=== PATIENT | male | born 1960 | race Two or more races ===

== ENCOUNTER 2017-11-29 16:26 | Inpatient (IN) | payer MEDICAID ==
[~2017-11-29] VITALS: Ht 177.8 cm; Wt 74.4 kg
[2017-11-29 16:37] VITALS: BP 135/95
--- NOTE | 2017-11-29 16:46 | Emergency Room Report ---
History of Present Illness General Chief Complaint: Dizziness Source: Patient, Family Member, EMS Present Illness HPI 57-year-old male, history of lung cancer, on chemotherapy, current smoker, hypertension, weakness in legs/unsteadiness, has not been able to walk for the last 2 months, presenting with shortness of breath. Patient states for the last 3-4 days he has been feeling very hot and has been short of breath. Not on any oxygen at home. EMS arrived, patient had just finished smoking a cigarette, his oxygen saturation is 94. Patient denies any chest pain nausea vomiting or abdominal pain Allergies: Coded Allergies: CODEINE (Verified Allergy, Unknown, 11/29/17) PENICILLINS (Verified Allergy, Unknown, 11/29/17) Patient History Past Medical History: see triage record Past Surgical History: none Pertinent Family History: none Reviewed Nursing Documentation: PMH: Agreed, PSxH: Agreed Nursing Documentation-PMH Past Medical History: No History, Except For Hx COPD: Yes - lung CA st 4 Review of Systems All Other Systems: negative except mentioned in HPI Physical Exam Vital Signs Date Time Temp Pulse Resp B/P (MAP) Pulse Ox O2 Delivery O2 Flow Rate FiO2 11/29/17 16:27 99.0 112 25 131/80 94 Room Air 99.0 Sp02 EP Interpretation: reviewed, normal General Appearance: alert, GCS 15, moderate distress Head: normocephalic, atraumatic Eyes: bilateral eye normal inspection, bilateral eye PERRL, bilateral eye EOMI ENT: normal ENT inspection, normal pharynx, normal voice, moist mucus membranes Neck: normal inspection, full range of motion, supple Respiratory: no wheezing, respiratory distress, speaking full sentences, other - dec b/s Ll marisel, chest symmetrical Cardiovascular #1: normal inspection, regular rate, rhythm, no edema, normal capillary refill Cardiovascular #2: 2+ radial (R), 2+ radial (L) Gastrointestinal: normal inspection, non tender, soft, non-distended, no guarding Genitourinary: no CVA tenderness Musculoskeletal: normal inspection, back normal, normal range of motion, non- tender Neurologic: normal inspection, alert, oriented x3, responsive, motor strength/ tone normal, sensory intact, speech normal Psychiatric: normal inspection, judgement/insight normal, memory normal Skin: normal inspection, normal color, no rash, warm/dry, well hydrated, normal turgor Procedures Critical Care Time Critical Care Time 40 minutes of CC time 57-year-old male with shortness of breath VS: Tachycardic and tachypneic PLAN: IV access, labs, lactate, troponin, Blood/Urine Cx, Abx, IVF Anticipate admission to Tele vs. [facility] CC time also includes review of labs, review of EMR, discussion with family and paperwork from SNF, d/w hospitalist CC could include dosing of pressors, additional Abx CC time does not include procedures Medical Decision Making Diagnostic Impression: Primary Impression: Respiratory distress Additional Impression: Lung cancer ER Course 57-year-old male presenting with shortness of breath DDX: Progression of lung cancer, sepsis, pneumonia, influenza, ACS, PE Plan: Obtain labs, ua, EKG, CXR ER course: Patient has been in respiratory distress although not hypoxic on room air Patient was stitched tachypnea, full white out left lung,, son states that that is where his lung cancer is I wanted to place patient on BiPAP, however patient is refusing at this time Has a white count of 14, unable to completely rule out pneumonia, given antibiotics Son states that penicillin allergies from when he was little, no history of anaphylaxis, given cefepime agreed to be placed on bipap, upgraded to [facility] Disposition: Patient is to be admitted to [facility] D/W hospitalist Dr Martin Please note that this Emergency Department Report was dictated using [employer] tender technology software, occasionally this can lead to erroneous entry secondary to interpretation by the dictation equipment. EKG Diagnostic Results EP Interpretation: Yes Rate: Tachycardic Rhythm: NSR ST Segments: No acute changes ASA given to patient: No Rhythm Strip EP Interpretation: Yes Rate: 107 Rhythm: NSR, no PVCs, no ectopy Chest X-ray CXR: Ordered: Yes 1 view Indication: Shortness of breath EP interpretation: Yes Interpretation: L lung white out Impression: L lung white out - CA vs. pna vs. effusion Electronically signed by Catie Hernandez MD Laboratory Tests Test 11/29/17 16:54 White Blood Count 14.0 K/UL (4.8-10.8) H Red Blood Count 4.73 M/UL (4.70-6.10) Hemoglobin 14.4 G/DL (14.2-18.0) Hematocrit 43.2 % (42.0-52.0) Mean Corpuscular Volume 91 FL (80-99) Mean Corpuscular Hemoglobin 30.4 PG (27.0-31.0) Mean Corpuscular Hemoglobin Concent 33.3 G/DL (32.0-36.0) Red Cell Distribution Width 15.0 % (11.6-14.8) H Platelet Count 467 K/UL (150-450) H Mean Platelet Volume 5.3 FL (6.5-10.1) L Neutrophils (%) (Auto) 81.4 % (45.0-75.0) H Lymphocytes (%) (Auto) 10.7 % (20.0-45.0) L Monocytes (%) (Auto) 6.8 % (1.0-10.0) Eosinophils (%) (Auto) 0.2 % (0.0-3.0) Basophils (%) (Auto) 0.9 % (0.0-2.0) Sodium Level 128 MMOL/L (136-145) L Potassium Level 4.7 MMOL/L (3.5-5.1) Chloride Level 86 MMOL/L (98-107) L Carbon Dioxide Level 17 MMOL/L (21-32) L Anion Gap 25 mmol/L (5-15) H Blood Urea Nitrogen 26 mg/dL (7-18) H Creatinine 0.9 MG/DL (0.55-1.30) Estimate Glomerular Filtration Rate > 60 mL/min (>60) Glucose Level 118 MG/DL (74-106) H Lactic Acid Level 3.50 mmol/L (0.66-2.22) H Calcium Level 9.9 MG/DL (8.5-10.1) Total Bilirubin 0.6 MG/DL (0.2-1.0) Aspartate Amino Transferase (AST) 264 U/L (15-37) H Alanine Aminotransferase (ALT) 31 U/L (12-78) Alkaline Phosphatase 361 U/L (46-116) H Troponin I 0.000 ng/mL (0.000-0.056) Total Protein 8.0 G/DL (6.4-8.2) Albumin 3.2 G/DL (3.4-5.0) L Globulin 4.8 g/dL Albumin/Globulin Ratio 0.7 (1.0-2.7) L Last Vital Signs Date Time Temp Pulse Resp B/P (MAP) Pulse Ox O2 Delivery O2 Flow Rate FiO2 11/29/17 16:27 99.0 112 25 131/80 94 Room Air 99.0 Disposition: ADMITTED INPATIENT Condition: Catie Prieto M.D. Nov 29, 2017 16:46
[2017-11-29 17:13] LABS: BASOPHILS % (AUTO) 0.9 % (0.0-2.0); EOSINOPHILS % (AUTO) 0.2 % (0.0-3.0); HEMATOCRIT 43.2 % (42.0-52.0); HEMOGLOBIN 14.4 G/DL (14.2-18.0); LYMPHOCYTES % (AUTO) 10.7 % (20.0-45.0); MEAN CORPUSCULAR VOLUME 91 FL (80-99); MONOCYTES % (AUTO) 6.8 % (1.0-10.0); NEUTROPHILS % (AUTO) 81.4 % (45.0-75.0); PLATELET COUNT 467 K/UL (150-450); RED BLOOD COUNT 4.73 M/UL (4.70-6.10)
[2017-11-29 17:24] LABS: ANION GAP 25 mmol/L (5-15); BLOOD UREA NITROGEN 26 mg/dL (7-18); CALCIUM 9.9 MG/DL (8.5-10.1); CARBON DIOXIDE 17 MMOL/L (21-32); CHLORIDE 86 MMOL/L (98-107); CREATININE 0.9 MG/DL (0.55-1.30); POTASSIUM 4.7 MMOL/L (3.5-5.1); SODIUM 128 MMOL/L (136-145)
[2017-11-29 17:28] LABS: ALANINE AMINOTRANSFERASE 31 U/L (12-78); ALBUMIN 3.2 G/DL (3.4-5.0); ALBUMIN/GLOBULIN RATIO 0.7 (1.0-2.7); ALKALINE PHOSPHATASE 361 U/L (46-116); ASPARTATE AMINO TRANSFERASE 264 U/L (15-37); BILIRUBIN,TOTAL 0.6 MG/DL (0.2-1.0)
[2017-11-29] MEDS ORDERED: Cefepime HCl 1 GM in D5W 55 ML IVPB ONE (17:30)
[2017-11-29] MEDS ORDERED: Piperacillin/Tazobactam 3.375 GM in NS 55 ML IV ONE (17:30)
[2017-11-29] MEDS ORDERED: Vancomycin 1.5gm/D5W 250ml 250 ML IVPB ONE (17:30)
[2017-11-29] MEDS ORDERED: Cefepime 1gm vial ONE (17:38)
--- NOTE | 2017-11-29 17:38 | Diagnostic Imaging Report ---
Indication: Reason For Exam: SOB Technique: One view of the chest Comparison: none Findings: There is considerable volume loss of the left lung, with elevation left hemidiaphragm. There is less some aerated lung present. Lateral pleural thickening versus fluid is noted. The right lung and pleural space are clear. There is a right arm PICC. Prominent bowel gas is seen in the upper abdomen Impression: Evidence of left lung volume loss and likely pleural fluid PICC
[2017-11-29] MEDS ORDERED: NORCO 10-325 T1 EACH ORAL (17:39)
[2017-11-29] MEDS ORDERED: ATENOLOL25 MG ORAL ×2 (17:44→22:35)
[2017-11-29] MEDS ORDERED: MORPHINE S10 MG/5 ML ORAL (17:44)
[2017-11-29] MEDS ORDERED: LORazepam Inj 2mg/ml 1ml IV PRN (18:00)
[2017-11-29] MEDS ORDERED: Miralax 17gm pkt ORAL PRN (18:00)
[2017-11-29] MEDS ORDERED: Albuterol/Ipratropium 3ml neb HHN PRN (18:00)
[2017-11-29 18:20] VITALS: BP 107/69
[2017-11-29 19:22] VITALS: BP 130/76
[2017-11-29 19:57] VITALS: BP 130/76
[2017-11-29] MEDS ORDERED: ATENOLOL100 MG ORAL (20:22)
[2017-11-29 21:07] VITALS: BP 137/82
[2017-11-29] MEDS ORDERED: Morphine Sulfate 4mg/ml Inj IVP ONE (21:15)
[2017-11-29] MEDS ORDERED: ZOFRAN ODT8 MG ORAL (22:39)
[2017-11-29] MEDS ORDERED: FENTANYL1 EAC2 TDERMAL (22:39)
[2017-11-29] MEDS ORDERED: Vancomycin 1 GM in D5W 275 ML IV SCH (23:00)
[2017-11-29] MEDS ORDERED: HYDROcodone/Acetamin 10/325 tab ORAL PRN (23:00)
[2017-11-29] MEDS: Morphine Sulfate 10mg/5ml Oral Soln ud ORAL PRN (23:29)
[2017-11-29] MEDS: Ondansetron ODT 8mg tab ORAL PRN (23:31)
[2017-11-29] MEDS: Heparin 5000 units/ml inj SUBQ SCH (23:32)
[2017-11-29 23:50] VITALS: BP 111/69
[2017-11-30] MEDS ORDERED: Cefepime HCl 2 GM in NS 110 ML IV SCH (05:00)
[2017-11-30] MEDS ORDERED: Vancomycin 1250mg/D5W 250ml IVPB SCH (06:00)
[2017-11-30] MEDS: Morphine Sulfate 10mg/5ml Oral Soln ud ORAL PRN (06:32)
[2017-11-30] MEDS: Ondansetron ODT 8mg tab ORAL PRN (06:33)
[2017-11-30 07:00] VITALS: BP 117/81
[2017-11-30] MEDS ORDERED: Morphine Sulfate 10mg/5ml Oral Soln ud ORAL PRN (08:30)
[2017-11-30] MEDS ORDERED: HYDROcodone/Acetamin 10/325 tab ORAL PRN ×4 (08:30→18:30)
[2017-11-30] MEDS: Heparin 5000 units/ml inj SUBQ SCH (09:00)
[2017-11-30] MEDS ORDERED: Atenolol 25mg tab ORAL SCH (09:00)
[2017-11-30] MEDS ORDERED: Naloxone 0.4mg/ml Inj IV PRN ×2 (09:30→14:00)
[2017-11-30] MEDS ORDERED: Morphine Sulfate 10mg/ml Inj IVP PRN ×2 (09:30→15:30)
[2017-11-30] MEDS ORDERED: Fleet's Enema 133ml RECTAL PRN ×2 (09:30→14:30)
--- NOTE | 2017-11-30 09:32 | Diagnostic Imaging Report ---
Indication: Shortness of breath. Abnormal breath sounds Technique: Continuous helical transaxial imaging of the chest was obtained from the thoracic inlet to the upper abdomen after intravenous nonionic contrast administration. Coronal 2-D reformats were also obtained. Automatic Exposure Control was utilized. Total Dose length Product (DLP): 509.[address] Dose Index Volume (CTDIvol): 15.17 mGy Comparison: none Findings: There is a very large enhancing heterogeneous mass (15 x 14 x 15 cm) within the upper portion of the left chest contiguous with the upper mediastinum, left hilum and encasing portions of the aorta, the left subclavian artery, left common carotid artery and the origin of the brachiocephalic artery. There is also encasement of part of the ino, with probable involvement of the esophagus. The mass extends above the thoracic inlet in and around the left medial clavicle head. There is apparent fracture of the medial head of the left clavicle which also appears dislocated from the manubrium. The mass encases the left innominate vein and subclavian vein which are not seen and may be occluded. Do not know what the status of the left jugular vein is. There is encasement of the left mainstem bronchus and branches of the left mainstem bronchus resulting in complete collapse of the left upper lobe and near complete collapse of the left lower lobe, resulting in significant volume loss with elevation of the left hemidiaphragm. There is a pathologic fracture secondary to lucent osseous focus involving the right aspect of the T11 vertebra. There is also expansile lesion involving the posterior part of the right 11th rib with associated soft tissue mass. Emphysema demonstrated within the lungs. There is breathing motion artifact present. There are abnormal hypodensities within both the liver and spleen consistent with metastatic neoplasm. There is a large left adrenal mass measuring 3.5 x 2.2 cm consistent with metastatic neoplasm. IMPRESSION: 15 x 14 x 15 cm heterogeneous mass within the left upper chest consistent malignant neoplasm. Associated extrinsic compression of left mainstem bronchus and branches result in complete atelectasis of the left upper lobe and near complete atelectasis of the left lower lobe. Nonvisualization of the left innominate vein/subclavian vein which may be extrinsically compressed by the mass. Status of the left jugular vein unknown. Evidence of metastatic neoplasm to the bones with a mild pathologic fracture of the T11 vertebra and other osseous deposits. Evidence of metastatic neoplasm to the liver. Left adrenal mass consistent with metastatic focus. Pulmonary emphysema Atherosclerotic disease. The CT scanner at [facility] is accredited by the [employer] and the scans are performed using dose optimization techniques as appropriate to a performed exam including Automatic Exposure control.
[2017-11-30 09:39] LABS: HEMATOCRIT 36.8 % (42.0-52.0); HEMOGLOBIN 12.5 G/DL (14.2-18.0); MEAN CORPUSCULAR VOLUME 90 FL (80-99); PLATELET COUNT 418 K/UL (150-450); RED BLOOD COUNT 4.07 M/UL (4.70-6.10); RED CELL DISTRIBUTION WIDTH 15.2 % (11.6-14.8); WHITE BLOOD COUNT 15.3 K/UL (4.8-10.8)
--- NOTE | 2017-11-30 09:49 | Consultation ---
Consult Note Consult Note [id number] IAIN READ M.D. Nov 30, 2017 09:49
[2017-11-30 09:50] LABS: ALBUMIN 2.5 G/DL (3.4-5.0); ANION GAP 20 mmol/L (5-15); BLOOD UREA NITROGEN 30 mg/dL (7-18); CALCIUM 9.3 MG/DL (8.5-10.1); CARBON DIOXIDE 20 MMOL/L (21-32); CHLORIDE 88 MMOL/L (98-107); CREATININE 1.2 MG/DL (0.55-1.30); PHOSPHORUS 3.6 MG/DL (2.5-4.9); POTASSIUM 4.5 MMOL/L (3.5-5.1); SODIUM 128 MMOL/L (136-145)
--- NOTE | 2017-11-30 11:07 | History and Physical ---
History of Present Illness General Date patient seen: Nov 30, 2017 Reason for Hospitalization: Dizziness Present Illness HPI 57-year-old male, history of stage 4 lung cancer, hypertension, weakness in legs/unsteadiness, has not been able to walk for the last 2 months, presenting with shortness of breath. Patient states for the last 3-4 days he has been feeling very hot and has been short of breath. Not on any oxygen at home. EMS arrived, patient had just finished smoking a cigarette, his oxygen saturation is 94. Pt was diagnosed to have total collapse of his left lung. Allergies: Coded Allergies: CODEINE (Verified Allergy, Unknown, 11/29/17) PENICILLINS (Verified Allergy, Unknown, 11/29/17) LIDOCAINE (Verified Adverse Reaction, Unknown, 11/29/17) Medication History Scheduled Atenolol* (Tenormin*), 25 MG ORAL DAILY, (Reported) Fentanyl 75MCG Patch* (Fentanyl 75MCG Patch*), 1 PATCH TDERMAL EVERY 72 HOURS, ( Reported) Scheduled PRN Hydrocodone Bit/Acetaminophen 10-325* (Havana 10-325*), 1 TAB ORAL Q6HR PRN for For Pain, (Reported) Morphine 10mg/5ml Oral Soln* (Morphine 10mg/5ml Oral Soln*), 60 MG ORAL Q6HR PRN for For Pain, (Reported) Ondansetron Odt* (Zofran Odt*), 8 MG ORAL Q6H PRN for Nausea & Vomiting, ( Reported) Discontinued Medications Atenolol* (Tenormin*), 100 MG ORAL DAILY, (Reported) Discontinued Reason: Prescription changed Patient History Healthcare decision maker Resuscitation status Full Code Advanced Directive on File Past Medical/Surgical History Past Medical/Surgical History: (1) Lung cancer Review of Systems Respiratory: Reports: cough, orthopnea All Other Systems: negative except mentioned in HPI Physical Exam General Appearance: cachetic Lines, tubes and drains: peripheral HEENT: normocephalic, atraumatic Neck: non-tender, normal alignment Respiratory/Chest: chest wall non-tender, lungs clear Cardiovascular/Chest: normal peripheral pulses, normal rate Abdomen: normal bowel sounds, non tender Last 24 Hour Vital Signs Date Time Temp Pulse Resp B/P (MAP) Pulse Ox O2 Delivery O2 Flow Rate FiO2 11/30/17 09:50 117 144/85 11/30/17 07:00 97.3 117 22 117/81 97 Room Air 21 97.3 11/30/17 04:00 103 11/30/17 00:00 103 11/29/17 23:50 98.1 91 22 111/69 90 Room Air 21 98.1 11/29/17 22:25 109 11/29/17 22:00 99.0 107 23 137/82 94 Room Air 2.0 210.2 11/29/17 21:21 99.0 11/29/17 21:07 99.0 107 23 137/82 94 Room Air 99.0 11/29/17 19:57 99.0 114 17 130/76 96 Nasal Cannula 2.0 99.0 11/29/17 19:22 99.0 109 26 130/76 97 Room Air 99.0 11/29/17 18:20 99.0 100 22 107/69 99 Room Air 99.0 11/29/17 16:37 99.0 101 22 135/95 90 Room Air 99.0 11/29/17 16:27 99.0 112 25 131/80 94 Room Air 99.0 Intake and Output 11/29/17 11/30/17 19:00 07:00 Intake Total 0 ml 100 ml Balance 0 ml 100 ml Intake Oral 0 ml 100 ml Laboratory Tests Test 11/29/17 16:54 11/29/17 20:40 11/30/17 09:00 White Blood Count 14.0 K/UL (4.8-10.8) H 15.3 K/UL (4.8-10.8) H Red Blood Count 4.73 M/UL (4.70-6.10) 4.07 M/UL (4.70-6.10) L Hemoglobin 14.4 G/DL (14.2-18.0) 12.5 G/DL (14.2-18.0) L Hematocrit 43.2 % (42.0-52.0) 36.8 % (42.0-52.0) L Mean Corpuscular Volume 91 FL (80-99) 90 FL (80-99) Mean Corpuscular Hemoglobin 30.4 PG (27.0-31.0) 30.7 PG (27.0-31.0) Mean Corpuscular Hemoglobin Concent 33.3 G/DL (32.0-36.0) 34.0 G/DL (32.0-36.0) Red Cell Distribution Width 15.0 % (11.6-14.8) H 15.2 % (11.6-14.8) H Platelet Count 467 K/UL (150-450) H 418 K/UL (150-450) Mean Platelet Volume 5.3 FL (6.5-10.1) L 5.2 FL (6.5-10.1) L Neutrophils (%) (Auto) 81.4 % (45.0-75.0) H % (45.0-75.0) Lymphocytes (%) (Auto) 10.7 % (20.0-45.0) L % (20.0-45.0) Monocytes (%) (Auto) 6.8 % (1.0-10.0) % (1.0-10.0) Eosinophils (%) (Auto) 0.2 % (0.0-3.0) % (0.0-3.0) Basophils (%) (Auto) 0.9 % (0.0-2.0) % (0.0-2.0) Sodium Level 128 MMOL/L (136-145) L 128 MMOL/L (136-145) L Potassium Level 4.7 MMOL/L (3.5-5.1) 4.5 MMOL/L (3.5-5.1) Chloride Level 86 MMOL/L (98-107) L 88 MMOL/L (98-107) L Carbon Dioxide Level 17 MMOL/L (21-32) L 20 MMOL/L (21-32) L Anion Gap 25 mmol/L (5-15) H 20 mmol/L (5-15) H Blood Urea Nitrogen 26 mg/dL (7-18) H 30 mg/dL (7-18) H Creatinine 0.9 MG/DL (0.55-1.30) 1.2 MG/DL (0.55-1.30) Estimat Glomerular Filtration Rate > 60 mL/min (>60) > 60 mL/min (>60) Glucose Level 118 MG/DL (74-106) H 190 MG/DL (74-106) H Lactic Acid Level 3.50 mmol/L (0.66-2.22) H 3.30 mmol/L (0.66-2.22) H Calcium Level 9.9 MG/DL (8.5-10.1) 9.3 MG/DL (8.5-10.1) Total Bilirubin 0.6 MG/DL (0.2-1.0) Aspartate Amino Transf (AST/SGOT) 264 U/L (15-37) H Alanine Aminotransferase (ALT/SGPT) 31 U/L (12-78) Alkaline Phosphatase 361 U/L (46-116) H Troponin I 0.000 ng/mL (0.000-0.056) Total Protein 8.0 G/DL (6.4-8.2) Albumin 3.2 G/DL (3.4-5.0) L 2.5 G/DL (3.4-5.0) L Globulin 4.8 g/dL Albumin/Globulin Ratio 0.7 (1.0-2.7) L Differential Total Cells Counted 100 Neutrophils % (Manual) 88 % (45-75) H Lymphocytes % (Manual) 7 % (20-45) L Monocytes % (Manual) 3 % (1-10) Eosinophils % (Manual) 1 % (0-3) Basophils % (Manual) 0 % (0-2) Band Neutrophils 1 % (0-8) Nucleated Red Blood Cells 1 /100 WBC Platelet Estimate Adequate Platelet Morphology Normal Red Blood Cell Morphology Normal Phosphorus Level 3.6 MG/DL (2.5-4.9) Microbiology Date/Time Source Procedure Growth Status 11/29/17 20:09 Nasal Nares Influenza Types A,B Antigen (RENETTA) - Final Complete Height (Feet): 5 Height (Inches): 10.00 Weight (Pounds): 164 Medications Current Medications Medications (Trade) Dose Ordered Sig/Maggie Route PRN Reason Start Time Stop Time Status Last Admin Dose Admin Acetaminophen (Tylenol) 650 mg Q4H PRN ORAL T>100.5 11/29/17 18:00 12/29/17 17:59 Acetaminophen/ Hydrocodone Bitart (Havana 10325) 1 tab Q6H PRN ORAL MODERATE BREAKTHROUGH PAIN 11/30/17 09:30 12/06/17 22:59 Albuterol/ Ipratropium (Albuterol/ Ipratropium) 3 ml Q4H PRN HHN Shortness of Breath 11/29/17 18:00 12/04/17 17:59 Atenolol (Tenormin) 25 mg DAILY ORAL 11/30/17 09:00 12/30/17 08:59 11/30/17 09:50 Cefepime HCl 2 gm/ Sodium Chloride 110 ml @ 220 mls/hr Q12H IV 11/30/17 05:00 12/07/17 04:59 11/30/17 06:33 Dextrose (Dextrose 50%) STAT PRN IV Hypoglycemia 11/29/17 18:00 12/29/17 17:59 Fentanyl (Duragesic) 1 patch Q72H TDERMAL 11/30/17 10:00 12/07/17 09:59 Heparin Sodium (Porcine) (Heparin 5000 units/ml) 5,000 units EVERY 12 HOURS SUBQ 11/29/17 21:00 12/29/17 20:59 11/29/17 23:32 Lorazepam (Ativan 2mg/ml 1ml) 2 mg Q2H PRN IV For Anxiety 11/29/17 18:00 12/06/17 17:59 Miscellaneous Medication (fentaNYL Destruction) 1 ea Q72H MISC 12/03/17 10:00 01/02/18 09:59 Morphine Sulfate (Morphine Sulfate) 10 mg Q6H PRN IVP SEVERE BREAKTHROUGH PAIN 11/30/17 09:30 12/07/17 09:29 Naloxone HCl (Narcan) 0.1 mg PRN IV Sedation scale 3 or 4 11/30/17 09:30 Ondansetron HCl (Zofran ODT) 8 mg Q6H PRN ORAL Nausea & Vomiting 11/29/17 23:00 12/29/17 22:59 11/30/17 06:33 Polyethylene Glycol (Miralax) 17 gm DAILYPRN PRN ORAL Constipation 11/29/17 18:00 12/29/17 17:59 Promethazine HCl (Phenergan) 25 mg EVERY 6 HOURS PRN IV Nausea & Vomiting 11/30/17 10:00 12/30/17 09:59 Sodium Chloride 1,000 ml @ 50 mls/hr Q20H IV 11/29/17 21:30 12/29/17 21:29 11/29/17 23:33 Sodium Phosphate (Fleet's Sodium Phosl Enema) 133 ml DAILYPRN PRN RECTAL Constipation 11/30/17 09:30 12/30/17 09:29 11/30/17 09:50 Vancomycin HCl/ Dextrose 250 ml @ 166.667 mls/hr Q12H IVPB 11/30/17 06:00 12/05/17 05:59 11/30/17 07:04 Assessment/Plan Problem List: (1) Intractable back pain ICD Codes: M54.9 - Dorsalgia, unspecified SNOMED: 413348771 (2) Pathological fracture ICD Codes: M84.40XA - Pathological fracture, unspecified site, initial encounter for fracture SNOMED: 401661054 (3) Respiratory distress ICD Codes: R06.03 - Acute respiratory distress SNOMED: 245137382 (4) Lung cancer ICD Codes: C34.90 - Malignant neoplasm of unspecified part of unspecified bronchus or lung SNOMED: 370279994 Assessment/Plan pain management pain consult oncology consult d/w son about plan of care , he wants DNR and hospice care upon discharge. Talked to dr Mckeon, he will arrange the hospice. SUNSHINE STEWARD Nov 30, 2017 11:07
[2017-11-30 12:00] VITALS: BP 144/85
[2017-11-30 13:30] VITALS: BP 105/65
[2017-11-30] MEDS ORDERED: Albuterol/Ipratropium 3ml neb HHN PRN (14:00)
[2017-11-30] MEDS ORDERED: LORazepam Inj 2mg/ml 1ml IV PRN (14:00)
[2017-11-30] MEDS ORDERED: Miralax 17gm pkt ORAL PRN (14:30)
[2017-11-30] MEDS ORDERED: Ondansetron ODT 8mg tab ORAL PRN (14:30)
[2017-11-30 16:00] VITALS: BP_SYST 109; BP_SYST 92; BP_DIAS 63; BP_DIAS 73
--- NOTE | 2017-11-30 16:27 | Cardiology Report ---
APPROVED REPORT EKG Measurement Heart [id number] Sinus tachycardia Possible Inferior infarct, age undetermined Abnormal ECG
[2017-11-30] MEDS: Cefepime HCl 2 GM in NS 110 ML IV SCH (16:49)
--- NOTE | 2017-11-30 16:53 | GI Initial Consult Note ---
History of Present Illness General Date patient seen: Nov 30, 2017 Time patient seen: 16:50 Reason for Hospitalization: Dizziness Referring physician: JUVENAL Reason for Consultation: R/O GI BLEED Present Illness HPI 57-year-old male, history of lung cancer, on chemotherapy, current smoker, hypertension, weakness in legs/unsteadiness, has not been able to walk for the last 2 months, presenting with shortness of breath. Patient states for the last 3-4 days he has been feeling very hot and has been short of breath. Not on any oxygen at home. EMS arrived, patient had just finished smoking a cigarette, his oxygen saturation is 94. Patient denies any chest pain nausea vomiting or abdominal pain GI consulted for r/o GI bleed. Pt seen, awake A&O NAD with no active s/sx of N/ V/D. Reports of possible hematemesis vs coffee grounds. Hx of stage 4 lung CA. Patient presents today with leukocytosis and anemia. Unnknown history of endoscopy / colonoscopy. Home Meds Reported Medications Fentanyl 75MCG Patch* (FENTANYL 75MCG PATCH*) 1 Each Patch.td72, 1 PATCH TDERMAL EVERY 72 HOURS, PATCH 11/29/17 Ondansetron Odt* (ZOFRAN ODT*) 8 Mg Tab.rapdis, 8 MG ORAL Q6H Y for Nausea & Vomiting, #30 TAB 11/29/17 Atenolol* (TENORMIN*) 25 Mg Tablet, 25 MG ORAL DAILY, TAB 11/29/17 Morphine 10mg/5ml Oral Soln* (Morphine 10mg/5ml Oral Soln*) 10 Mg/5 Ml Solution , 60 MG ORAL Q6HR Y for For Pain 11/29/17 Hydrocodone Bit/Acetaminophen 10-325* (NORCO 10-325*) 1 Each Tablet, 1 TAB ORAL Q6HR Y for For Pain PRN PAIN 11/29/17 Discontinued Reported Medications Atenolol* (TENORMIN*) 100 Mg Tablet, 100 MG ORAL DAILY 11/29/17 Med list reviewed/reconciled: Yes Allergies: Coded Allergies: CODEINE (Verified Allergy, Unknown, 11/29/17) PENICILLINS (Verified Allergy, Unknown, 11/29/17) LIDOCAINE (Verified Adverse Reaction, Unknown, 11/29/17) Patient History History Provided By: Patient, Medical Record PMH Narrative Past Medical History: see triage record Past Surgical History: none Pertinent Family History: none Reviewed Nursing Documentation: PMH: Agreed, PSxH: Agreed Nursing Documentation-PMH Past Medical History: No History, Except For Hx COPD: Yes - lung CA st 4 Social History: Reports: smoking Review of Systems All Other Systems: negative except mentioned in HPI Physical Exam Vital Signs Date Time Temp Pulse Resp B/P (MAP) Pulse Ox O2 Delivery O2 Flow Rate FiO2 11/29/17 16:27 99.0 112 25 131/80 94 Room Air 99.0 11/29/17 19:57 2.0 11/29/17 23:50 21 Sp02 EP Interpretation: reviewed, normal Labs Laboratory Tests Test 11/29/17 16:54 11/29/17 20:40 11/30/17 09:00 White Blood Count 14.0 K/UL (4.8-10.8) H 15.3 K/UL (4.8-10.8) H Red Blood Count 4.73 M/UL (4.70-6.10) 4.07 M/UL (4.70-6.10) L Hemoglobin 14.4 G/DL (14.2-18.0) 12.5 G/DL (14.2-18.0) L Hematocrit 43.2 % (42.0-52.0) 36.8 % (42.0-52.0) L Mean Corpuscular Volume 91 FL (80-99) 90 FL (80-99) Mean Corpuscular Hemoglobin 30.4 PG (27.0-31.0) 30.7 PG (27.0-31.0) Mean Corpuscular Hemoglobin Concent 33.3 G/DL (32.0-36.0) 34.0 G/DL (32.0-36.0) Red Cell Distribution Width 15.0 % (11.6-14.8) H 15.2 % (11.6-14.8) H Platelet Count 467 K/UL (150-450) H 418 K/UL (150-450) Mean Platelet Volume 5.3 FL (6.5-10.1) L 5.2 FL (6.5-10.1) L Neutrophils (%) (Auto) 81.4 % (45.0-75.0) H % (45.0-75.0) Lymphocytes (%) (Auto) 10.7 % (20.0-45.0) L % (20.0-45.0) Monocytes (%) (Auto) 6.8 % (1.0-10.0) % (1.0-10.0) Eosinophils (%) (Auto) 0.2 % (0.0-3.0) % (0.0-3.0) Basophils (%) (Auto) 0.9 % (0.0-2.0) % (0.0-2.0) Sodium Level 128 MMOL/L (136-145) L 128 MMOL/L (136-145) L Potassium Level 4.7 MMOL/L (3.5-5.1) 4.5 MMOL/L (3.5-5.1) Chloride Level 86 MMOL/L (98-107) L 88 MMOL/L (98-107) L Carbon Dioxide Level 17 MMOL/L (21-32) L 20 MMOL/L (21-32) L Anion Gap 25 mmol/L (5-15) H 20 mmol/L (5-15) H Blood Urea Nitrogen 26 mg/dL (7-18) H 30 mg/dL (7-18) H Creatinine 0.9 MG/DL (0.55-1.30) 1.2 MG/DL (0.55-1.30) Estimat Glomerular Filtration Rate > 60 mL/min (>60) > 60 mL/min (>60) Glucose Level 118 MG/DL (74-106) H 190 MG/DL (74-106) H Lactic Acid Level 3.50 mmol/L (0.66-2.22) H 3.30 mmol/L (0.66-2.22) H Calcium Level 9.9 MG/DL (8.5-10.1) 9.3 MG/DL (8.5-10.1) Total Bilirubin 0.6 MG/DL (0.2-1.0) Aspartate Amino Transf (AST/SGOT) 264 U/L (15-37) H Alanine Aminotransferase (ALT/SGPT) 31 U/L (12-78) Alkaline Phosphatase 361 U/L (46-116) H Troponin I 0.000 ng/mL (0.000-0.056) Total Protein 8.0 G/DL (6.4-8.2) Albumin 3.2 G/DL (3.4-5.0) L 2.5 G/DL (3.4-5.0) L Globulin 4.8 g/dL Albumin/Globulin Ratio 0.7 (1.0-2.7) L Differential Total Cells Counted 100 Neutrophils % (Manual) 88 % (45-75) H Lymphocytes % (Manual) 7 % (20-45) L Monocytes % (Manual) 3 % (1-10) Eosinophils % (Manual) 1 % (0-3) Basophils % (Manual) 0 % (0-2) Band Neutrophils 1 % (0-8) Nucleated Red Blood Cells 1 /100 WBC Platelet Estimate Adequate Platelet Morphology Normal Red Blood Cell Morphology Normal Phosphorus Level 3.6 MG/DL (2.5-4.9) General Appearance: well appearing, no apparent distress, alert Head: normocephalic EENT: PERRL/EOMI, normal ENT inspection Neck: supple Respiratory: normal breath sounds, no respiratory distress Cardiovascular: normal rate Gastrointestinal: normal inspection, non tender, soft, normal bowel sounds, non -distended Rectal: deferred Genitourinary: deferred Musculoskeletal: normal inspection, back normal Neurologic: normal inspection, alert, oriented x3, responsive Psychiatric: normal inspection, judgement/insight normal, memory normal Skin: normal inspection, normal color, no rash, warm/dry, palpation normal, well hydrated Lymphatic: normal inspection, no adenopathy Current Medications Current Medications Medications (Trade) Dose Ordered Sig/Maggie Route PRN Reason Start Time Stop Time Status Last Admin Dose Admin Acetaminophen (Tylenol) 650 mg Q4H PRN ORAL T>100.5 11/30/17 14:00 12/29/17 17:59 Acetaminophen/ Hydrocodone Bitart ([place] 10/325) 1 tab Q6H PRN ORAL MODERATE BREAKTHROUGH PAIN 11/30/17 15:30 12/06/17 22:59 Albuterol/ Ipratropium (Albuterol/ Ipratropium) 3 ml Q4H PRN HHN Shortness of Breath 11/30/17 14:00 12/04/17 17:59 Atenolol (Tenormin) 25 mg DAILY ORAL 12/01/17 09:00 12/30/17 08:59 Cefepime HCl 2 gm/ Sodium Chloride 110 ml @ 220 mls/hr Q12H IV 11/30/17 17:00 12/07/17 04:59 11/30/17 16:49 Dextrose (Dextrose 50%) STAT PRN IV Hypoglycemia 11/30/17 14:30 12/29/17 14:29 Fentanyl (Duragesic) 1 patch Q72H TDERMAL 11/30/17 10:00 12/07/17 09:59 11/30/17 11:04 Heparin Sodium (Porcine) (Heparin 5000 units/ml) 5,000 units EVERY 12 HOURS SUBQ 11/30/17 21:00 12/29/17 20:59 Lorazepam (Ativan 2mg/ml 1ml) 2 mg Q2H PRN IV For Anxiety 11/30/17 14:00 12/06/17 17:59 Methadone HCl (Methadone HCl) 2.5 mg EVERY 6 HOURS ORAL 11/30/17 18:00 12/07/17 12:29 Miscellaneous Medication (fentaNYL Destruction) 1 ea Q72H MISC 12/03/17 10:00 01/02/18 09:59 Morphine Sulfate (Morphine Sulfate) 10 mg Q6H PRN IVP SEVERE BREAKTHROUGH PAIN 11/30/17 15:30 12/07/17 09:29 Naloxone HCl (Narcan) 0.1 mg PRN IV Sedation scale 3 or 4 11/30/17 14:00 12/30/17 13:59 Ondansetron HCl (Zofran ODT) 8 mg Q6H PRN ORAL Nausea & Vomiting 11/30/17 14:30 12/29/17 14:29 Polyethylene Glycol (Miralax) 17 gm DAILYPRN PRN ORAL Constipation 11/30/17 14:30 12/29/17 14:29 Promethazine HCl (Phenergan) 25 mg Q6H PRN IV Nausea & Vomiting 11/30/17 14:30 12/30/17 14:29 Sodium Chloride 1,000 ml @ 50 mls/hr Q20H IV 11/30/17 14:00 12/29/17 21:29 11/30/17 15:27 Sodium Phosphate (Fleet's Sodium Phosl Enema) 133 ml DAILYPRN PRN RECTAL Constipation 11/30/17 14:30 12/30/17 14:29 Vancomycin HCl/ Dextrose 250 ml @ 166.667 mls/hr Q12H IVPB 11/30/17 18:00 12/05/17 05:59 GI: Plan Problems: (1) GI bleed (2) Respiratory distress (3) Lung cancer Plan elevated AST >> ?ETOH fu onc recs anemia work up OB stool r/o GI bleed monitor H&H, prn transfusions bowel regime CLD, adv as tolerated ppi fu labs Discussed with Dr. Benitez. Thank you for this patient referral, we will follow. Shanita Hutchison N.P. Nov 30, 2017 16:53
--- NOTE | 2017-11-30 17:15 | Consultation ---
DATE OF CONSULTATION: 11/30/2017 INFECTIOUS DISEASES CONSULTATION CONSULTING PHYSICIAN: Rony Oliver M.D. REQUESTING PHYSICIAN: Arsen Martin M.D. REASON FOR CONSULTATION: Evaluation of the patient for postobstructive pneumonia. HISTORY OF PRESENT ILLNESS: The patient is a 57-year-old male with multiple medical problems as listed below who has developed shortness of breath, cough that has worsened. Infectious Disease consultation has been requested for further evaluation of the patient and antibiotic management. The patient has history of stage IV lung CA, not responding to chemo. PAST MEDICAL HISTORY: 1. Stage IV small cell carcinoma. 2. COPD. 3. Hypertension. MEDICATIONS: Vancomycin and cefepime. ALLERGIES: Penicillin, lidocaine, and codeine. SOCIAL HISTORY: The patient lives at home. FAMILY HISTORY: Noncontributing. PHYSICAL EXAMINATION: VITAL SIGNS: Temperature 97.3 degrees, blood pressure 117/81, pulse 86, and respiratory rate 18. HEENT: No pale conjunctivae. No icterus. NECK: No lymphadenopathy. CHEST: Mild coarse breathing sounds at the base of the lungs. HEART: S1 and S2. ABDOMEN: Soft and nontender. EXTREMITIES: No cyanosis at this time. NEUROLOGIC: Awake. LABORATORY AND DIAGNOSTIC DATA: White blood cells 14, hemoglobin 14, and platelets 467. BUN 26 and creatinine 0.9. ALT 31, AST 264, and alkaline phosphatase 361. Influenza screening negative for A/B influenza. CT of the chest shows 15 x 14 x malignant neoplasm, evidence of metastatic neoplasm to the bone, liver, and left adrenal. ASSESSMENT: This is a 57-year-old male with, 1. Leukocytosis. 2. Probable postobstructive pneumonia. 3. Stage IV cancer with metastasis to the bone, liver, and adrenal. 4. Leukocytosis due to cancer and probable infectious process and pneumonia. PLAN: 1. We will continue the patient on vancomycin and cefepime. 2. Monitor cultures (blood, sputum). 3. Monitor chest x-ray. 4. Monitor CBC and BMP. 5. Rapid influenza test negative. 6. Based on the patient's clinical course and labs, we will do further recommendations. Thank you, Dr. Martin, for allowing me to participate in the care of this patient. I will follow the patient with you during this hospitalization. Rony Oliver M.D. DR: EKATERINA JOB#: [id number] CC:
[2017-11-30] MEDS ORDERED: Vancomycin 1250mg/D5W 250ml 250 ML IVPB SCH (18:00)
--- NOTE | 2017-11-30 19:47 | Consultation ---
History of Present Illness General Date patient seen: Nov 30, 2017 Present Illness Allergies: Coded Allergies: CODEINE (Verified Allergy, Unknown, 11/29/17) PENICILLINS (Verified Allergy, Unknown, 11/29/17) LIDOCAINE (Verified Adverse Reaction, Unknown, 11/29/17) Medication History Scheduled Atenolol* (Tenormin*), 25 MG ORAL DAILY, (Reported) Fentanyl 75MCG Patch* (Fentanyl 75MCG Patch*), 1 PATCH TDERMAL EVERY 72 HOURS, ( Reported) Scheduled PRN Hydrocodone Bit/Acetaminophen 10-325* ([place] 10-325*), 1 TAB ORAL Q6HR PRN for For Pain, (Reported) Morphine 10mg/5ml Oral Soln* (Morphine 10mg/5ml Oral Soln*), 60 MG ORAL Q6HR PRN for For Pain, (Reported) Ondansetron Odt* (Zofran Odt*), 8 MG ORAL Q6H PRN for Nausea & Vomiting, ( Reported) Discontinued Medications Atenolol* (Tenormin*), 100 MG ORAL DAILY, (Reported) Discontinued Reason: Prescription changed Patient History Healthcare decision maker Resuscitation status Full Code Advanced Directive on File Physical Exam Last 24 Hour Vital Signs Date Time Temp Pulse Resp B/P (MAP) Pulse Ox O2 Delivery O2 Flow Rate FiO2 11/30/17 16:00 98.2 82 20 92/63 98 Room Air 98.2 11/30/17 13:30 97.5 112 22 105/65 90 Room Air 97.5 11/30/17 12:00 98.2 117 20 144/85 92 Room Air 98.2 11/30/17 09:50 117 144/85 11/30/17 07:00 97.3 117 22 117/81 97 Room Air 21 97.3 11/30/17 04:00 103 11/30/17 00:00 103 11/29/17 23:50 98.1 91 22 111/69 90 Room Air 21 98.1 11/29/17 22:25 109 11/29/17 22:00 99.0 107 23 137/82 94 Room Air 2.0 210.2 11/29/17 21:21 99.0 11/29/17 21:07 99.0 107 23 137/82 94 Room Air 99.0 11/29/17 19:57 99.0 114 17 130/76 96 Nasal Cannula 2.0 99.0 Intake and Output 11/29/17 11/30/17 19:00 07:00 Intake Total 0 ml 100 ml Balance 0 ml 100 ml Intake Oral 0 ml 100 ml Laboratory Tests Test 11/29/17 20:40 11/30/17 09:00 Lactic Acid Level 3.30 mmol/L (0.66-2.22) H White Blood Count 15.3 K/UL (4.8-10.8) H Red Blood Count 4.07 M/UL (4.70-6.10) L Hemoglobin 12.5 G/DL (14.2-18.0) L Hematocrit 36.8 % (42.0-52.0) L Mean Corpuscular Volume 90 FL (80-99) Mean Corpuscular Hemoglobin 30.7 PG (27.0-31.0) Mean Corpuscular Hemoglobin Concent 34.0 G/DL (32.0-36.0) Red Cell Distribution Width 15.2 % (11.6-14.8) H Platelet Count 418 K/UL (150-450) Mean Platelet Volume 5.2 FL (6.5-10.1) L Neutrophils (%) (Auto) % (45.0-75.0) Lymphocytes (%) (Auto) % (20.0-45.0) Monocytes (%) (Auto) % (1.0-10.0) Eosinophils (%) (Auto) % (0.0-3.0) Basophils (%) (Auto) % (0.0-2.0) Differential Total Cells Counted 100 Neutrophils % (Manual) 88 % (45-75) H Lymphocytes % (Manual) 7 % (20-45) L Monocytes % (Manual) 3 % (1-10) Eosinophils % (Manual) 1 % (0-3) Basophils % (Manual) 0 % (0-2) Band Neutrophils 1 % (0-8) Nucleated Red Blood Cells 1 /100 WBC Platelet Estimate Adequate Platelet Morphology Normal Red Blood Cell Morphology Normal Sodium Level 128 MMOL/L (136-145) L Potassium Level 4.5 MMOL/L (3.5-5.1) Chloride Level 88 MMOL/L (98-107) L Carbon Dioxide Level 20 MMOL/L (21-32) L Anion Gap 20 mmol/L (5-15) H Blood Urea Nitrogen 30 mg/dL (7-18) H Creatinine 1.2 MG/DL (0.55-1.30) Estimat Glomerular Filtration Rate > 60 mL/min (>60) Glucose Level 190 MG/DL (74-106) H Calcium Level 9.3 MG/DL (8.5-10.1) Phosphorus Level 3.6 MG/DL (2.5-4.9) Albumin 2.5 G/DL (3.4-5.0) L Microbiology Date/Time Source Procedure Growth Status 11/29/17 20:09 Nasal Nares Influenza Types A,B Antigen (RENETTA) - Final Complete Height (Feet): 5 Height (Inches): 10.00 Weight (Pounds): 164 Medications Current Medications Medications (Trade) Dose Ordered Sig/Maggie Route PRN Reason Start Time Stop Time Status Last Admin Dose Admin Acetaminophen (Tylenol) 650 mg Q4H PRN ORAL T>100.5 11/30/17 14:00 12/29/17 17:59 Acetaminophen/ Hydrocodone Bitart ([place] 10/325) 1 tab Q4H PRN ORAL Moderate Pain (Pain Scale 4-6) 11/30/17 18:30 12/07/17 18:29 Albuterol/ Ipratropium (Albuterol/ Ipratropium) 3 ml Q4H PRN HHN Shortness of Breath 11/30/17 14:00 12/04/17 17:59 Atenolol (Tenormin) 25 mg DAILY ORAL 12/01/17 09:00 12/30/17 08:59 Cefepime HCl 2 gm/ Sodium Chloride 110 ml @ 220 mls/hr Q12H IV 11/30/17 17:00 12/07/17 04:59 11/30/17 16:49 Chlorhexidine Gluconate (Yue-Hex 2%) 1 applic DAILY@2000 TOPIC 11/30/17 20:00 12/30/17 19:59 Dextrose (Dextrose 50%) STAT PRN IV Hypoglycemia 11/30/17 14:30 12/29/17 14:29 Fentanyl (Duragesic) 1 patch Q72H TDERMAL 11/30/17 10:00 12/07/17 09:59 11/30/17 11:04 Heparin Sodium (Porcine) (Heparin 5000 units/ml) 5,000 units EVERY 12 HOURS SUBQ 11/30/17 21:00 12/29/17 20:59 Lorazepam (Ativan 2mg/ml 1ml) 2 mg Q2H PRN IV For Anxiety 11/30/17 14:00 12/06/17 17:59 Miscellaneous Medication (fentaNYL Destruction) 1 ea Q72H MISC 12/03/17 10:00 01/02/18 09:59 Morphine Sulfate (Morphine Sulfate) 4 mg Q3H PRN IVP Severe Pain (Pain Scale 7-10) 11/30/17 18:30 12/07/17 18:29 Naloxone HCl (Narcan) 0.1 mg PRN IV Sedation scale 3 or 4 11/30/17 14:00 12/30/17 13:59 Ondansetron HCl (Zofran ODT) 8 mg Q6H PRN ORAL Nausea & Vomiting 11/30/17 14:30 12/29/17 14:29 Polyethylene Glycol (Miralax) 17 gm DAILYPRN PRN ORAL Constipation 11/30/17 14:30 12/29/17 14:29 Promethazine HCl (Phenergan) 25 mg Q6H PRN IV Nausea & Vomiting 11/30/17 14:30 12/30/17 14:29 Sodium Chloride 1,000 ml @ 50 mls/hr Q20H IV 11/30/17 14:00 12/29/17 21:29 11/30/17 15:27 Sodium Phosphate (Fleet's Sodium Phosl Enema) 133 ml DAILYPRN PRN RECTAL Constipation 11/30/17 14:30 12/30/17 14:29 Vancomycin HCl/ Dextrose 250 ml @ 166.667 mls/hr Q12H IVPB 11/30/17 18:00 12/05/17 05:59 11/30/17 17:48 Assessment/Plan Assessment/Plan (1) Intractable pain (2) Metastatic Lung cancer (3) Paraparesis seen dictated RIMMA VYAS Nov 30, 2017 19:47
[2017-11-30] MEDS: Morphine Sulfate 4mg/ml Inj IVP PRN (19:59)
[2017-11-30 20:00] VITALS: BP 110/75
[2017-11-30] MEDS ORDERED: Dyna-Hex 2% Top Sol 2oz TOPIC SCH (20:00)
[2017-11-30] MEDS ORDERED: Heparin 5000 units/ml inj SUBQ SCH (21:00)
--- NOTE | 2017-11-30 23:45 | Consultation ---
DATE OF CONSULTATION: 11/30/2017 PAIN MANAGEMENT CONSULTATION REFERRING PHYSICIAN: Arsen Martin M.D. CONSULTING PHYSICIAN: Rosie London M.D. PHYSICIAN SEARCH MARKETING ANALYST: Mary Anne Yip CHIEF COMPLAINT: Generalized body pain. HISTORY OF PRESENT ILLNESS: This is a 57-year-old male who is being seen on the medical/surgical floor of [facility] for initial comprehensive pain management consultation. The patient is complaining of generalized body pain, which is severe, rating 10/10, and described the pain as a sharp and stabbing pain increased with movement and nothing has been helping to relieve the pain. The patient explained that he is having lung cancer with metastasis, unable to walk for the past two months and has been having some shortness of breath. He is on fentanyl patches 75 mcg every 72 hours and morphine solution as per his oncologist. Upon admission, a CT scan of the chest was done showing a large malignant neoplasm in the lung as well as evidence of metastatic neoplasm to the bones with mild pathological fracture of the T11 vertebral body. At this time, the patient has been started on fentanyl patch 75 mcg every 72 hours, methadone 2.5 mg every six hours, [place] 10/325 one tablet every six hours as well as morphine 10 mg IV every four hours. I discussed with the patient about his condition and the need to have medication on board. However, he refused to take the methadone. We will continue the fentanyl patch with parameters to be set as well as reduce the morphine to 4 mg IV every three hours as needed for severe pain. Continue the [place] 10/325 mg every four hours as needed for moderate pain. The patient understands and agrees with the plan. PAST MEDICAL HISTORY: Lung cancer, hypertension, and weakness in the lower extremities. MEDICATIONS: Crum [place], morphine, Zofran, fentanyl patch, and atenolol. ALLERGIES: Codeine, penicillin, and lidocaine. SOCIAL HISTORY: He is a smoker. Drinks alcohol occasionally and denies IV drug abuse. REVIEW OF SYSTEMS: Denies rash, fever, chills, sweating, dizziness, drowsiness, blurred vision, sore throat, or change in weight. No nausea, vomiting, diarrhea, or blood in the stool or urine. No bowel or bladder incontinence. No dysuria. He is complaining of generalized body pain and shortness of breath with cough and weakness in the lower extremities. PHYSICAL EXAMINATION: GENERAL: Alert, awake, and oriented. VITAL SIGNS: Blood pressure 105/65, heart rate is 112, oxygen saturation is 90%, respiratory rate is 22, and temperature is 97.5 degrees Fahrenheit. HEENT: PERRLA. NECK: Range of motion is decreased due to the patient's clinical condition. LUNGS: Decreased breath sounds bilaterally. HEART: Regular. ABDOMEN: Distended. BACK: Range of motion is decreased in flexion and extension. EXTREMITIES: No cyanosis. No clubbing. No edema. NEUROLOGICAL: Weakness in the lower extremities noted. Sensory is reduced. Reflexes are not obtainable. ASSESSMENT AND PLAN: This is a 57-year-old male with intractable pain, metastatic lung cancer, and paraparesis. The patient will be continued on the fentanyl patch 75 mcg every 72 hours. We will discontinue the methadone, reduce the morphine IV to 4 mg IV every three hours as needed for severe pain. Continue the [place] 10/325 mg one tablet every four hours as needed for moderate pain. The patient was discussed with Dr. London and Dr. London concurred. Thank you very much for the courtesy of this consultation. Rosie London M.D. BHAKTI Yip DR: Vazquez JOB#: [id number] CC:
[2017-12-01] VITALS: BP 92/57
[2017-12-01 04:00] VITALS: BP 90/59
[2017-12-01] MEDS: Cefepime HCl 2 GM in NS 110 ML IV SCH (04:36)
[2017-12-01 06:59] LABS: % IRON SATURATION 61 % (15-50); IRON 118 ug/dL (50-175); TOTAL IRON BINDING CAPACITY 193 ug/dL (250-450)
[2017-12-01 07:04] LABS: BASOPHILS % (AUTO) 1.1 % (0.0-2.0); EOSINOPHILS % (AUTO) 0.6 % (0.0-3.0); HEMATOCRIT 27.2 % (42.0-52.0); HEMOGLOBIN 9.1 G/DL (14.2-18.0); LYMPHOCYTES % (AUTO) 11.7 % (20.0-45.0); MEAN CORPUSCULAR VOLUME 92 FL (80-99); MONOCYTES % (AUTO) 6.8 % (1.0-10.0); NEUTROPHILS % (AUTO) 79.7 % (45.0-75.0); PLATELET COUNT 284 K/UL (150-450); RED BLOOD COUNT 2.95 M/UL (4.70-6.10); RED CELL DISTRIBUTION WIDTH 16.1 % (11.6-14.8); WHITE BLOOD COUNT 11.9 K/UL (4.8-10.8)
[2017-12-01 07:05] LABS: INR 4.2 (0.9-1.1)
[2017-12-01 07:45] LABS: ALANINE AMINOTRANSFERASE 30 U/L (12-78); ALBUMIN 1.8 G/DL (3.4-5.0); ALBUMIN/GLOBULIN RATIO 0.5 (1.0-2.7); ALKALINE PHOSPHATASE 236 U/L (46-116); ANION GAP 11 mmol/L (5-15); ASPARTATE AMINO TRANSFERASE 423 U/L (15-37); BILIRUBIN,TOTAL 0.3 MG/DL (0.2-1.0); BLOOD UREA NITROGEN 52 mg/dL (7-18); CALCIUM 6.6 MG/DL (8.5-10.1); CARBON DIOXIDE 20 MMOL/L (21-32); CHLORIDE 100 MMOL/L (98-107); CREATININE 1.8 MG/DL (0.55-1.30); FERRITIN > 2000 NG/ML (8-388); POTASSIUM 3.9 MMOL/L (3.5-5.1); SODIUM 131 MMOL/L (136-145)
[2017-12-01 08:00] VITALS: BP 104/65
[2017-12-01] MEDS ORDERED: LORazepam Inj 2mg/ml 1ml IV PRN (08:15)
[2017-12-01] MEDS ORDERED: Atenolol 25mg tab ORAL SCH (09:00)
--- NOTE | 2017-12-01 10:21 | Infectious Diseases Prog Note ---
Assessment/Plan Assessment/Plan ASSESSMENT: This is a 57-year-old male with Leukocytosi improving Probable postobstructive pneumonia. BRYCE Stage IV small cell carcinoma. CT : 15 x 14 cm malignant mass w evidence of metastatic neoplasm to the bone, liver, and left adrenal. COPD. Hypertension. Influenza screening negative for A/B influenza PLAN: continue the patient on vancomycin and cefepime d# -10 Monitor cultures (blood, sputum) Monitor chest x-ray. Monitor CBC and BMP. Subjective Allergies: Coded Allergies: CODEINE (Verified Allergy, Unknown, 11/29/17) PENICILLINS (Verified Allergy, Unknown, 11/29/17) LIDOCAINE (Verified Adverse Reaction, Unknown, 11/29/17) Subjective Comfortable Objective Vital Signs Last 24 Hour Vital Signs Date Time Temp Pulse Resp B/P (MAP) Pulse Ox O2 Delivery O2 Flow Rate FiO2 12/01/17 09:00 75 104/65 12/01/17 05:36 Venturi Mask 12.0 50 12/01/17 05:36 92 Venturi Mask 12.0 50 12/01/17 04:00 98.1 89 22 90/59 97 98.1 12/01/17 00:00 97.9 99 22 92/57 98 97.9 11/30/17 20:00 98.2 104 21 110/75 98 98.2 11/30/17 16:00 98.2 82 20 92/63 98 Room Air 98.2 11/30/17 13:30 97.5 112 22 105/65 90 Room Air 97.5 11/30/17 12:00 98.2 117 20 144/85 92 Room Air 98.2 Height (Feet): 5 Height (Inches): 10.00 Weight (Pounds): 164 HEENT: anicteric Respiratory/Chest: normal breath sounds Cardiovascular: regular rhythm Abdomen: no organomegaly Microbiology Date/Time Source Procedure Growth Status 11/29/17 16:52 Blood Blood Culture - Preliminary NO GROWTH AFTER 24 HOURS Resulted 11/29/17 16:48 Blood Blood Culture - Preliminary NO GROWTH AFTER 24 HOURS Resulted 11/29/17 20:09 Nasal Nares Influenza Types A,B Antigen (RENETTA) - Final Complete Laboratory Tests Test 12/01/17 04:50 12/01/17 05:00 Sodium Level 131 MMOL/L (136-145) L Potassium Level 3.9 MMOL/L (3.5-5.1) Chloride Level 100 MMOL/L (98-107) Carbon Dioxide Level 20 MMOL/L (21-32) L Anion Gap 11 mmol/L (5-15) Blood Urea Nitrogen 52 mg/dL (7-18) H Creatinine 1.8 MG/DL (0.55-1.30) H Estimat Glomerular Filtration Rate 39.2 mL/min (>60) Glucose Level 94 MG/DL (74-106) Calcium Level 6.6 MG/DL (8.5-10.1) #L Iron Level 118 ug/dL (50-175) Total Iron Binding Capacity 193 ug/dL (250-450) L Percent Iron Saturation 61 % (15-50) H Unsaturated Iron Binding 75 ug/dL (112-346) L Ferritin > 2000 NG/ML (8-388) H Total Bilirubin 0.3 MG/DL (0.2-1.0) Aspartate Amino Transf (AST/SGOT) 423 U/L (15-37) H Alanine Aminotransferase (ALT/SGPT) 30 U/L (12-78) Alkaline Phosphatase 236 U/L (46-116) H Total Protein 5.3 G/DL (6.4-8.2) #L Albumin 1.8 G/DL (3.4-5.0) L Globulin 3.5 g/dL Albumin/Globulin Ratio 0.5 (1.0-2.7) L Vitamin B12 Level 1214 PG/ML (193-986) H Folate 4.8 NG/ML (8.6-58.9) L Thyroid Stimulating Hormone (TSH) 0.852 uiU/mL (0.358-3.740) Free Thyroxine 1.28 NG/DL (0.76-1.46) Vancomycin Level Trough 27.3 ug/mL (5.0-12.0) H White Blood Count 11.9 K/UL (4.8-10.8) H Red Blood Count 2.95 M/UL (4.70-6.10) L Hemoglobin 9.1 G/DL (14.2-18.0) L Hematocrit 27.2 % (42.0-52.0) L Mean Corpuscular Volume 92 FL (80-99) Mean Corpuscular Hemoglobin 30.9 PG (27.0-31.0) Mean Corpuscular Hemoglobin Concent 33.4 G/DL (32.0-36.0) Red Cell Distribution Width 16.1 % (11.6-14.8) H Platelet Count 284 K/UL (150-450) Mean Platelet Volume 5.4 FL (6.5-10.1) L Neutrophils (%) (Auto) 79.7 % (45.0-75.0) H Lymphocytes (%) (Auto) 11.7 % (20.0-45.0) L Monocytes (%) (Auto) 6.8 % (1.0-10.0) Eosinophils (%) (Auto) 0.6 % (0.0-3.0) Basophils (%) (Auto) 1.1 % (0.0-2.0) Reticulocyte Count Pending Prothrombin Time 44.3 SEC (9.30-11.50) H Prothromb Time International Ratio 4.2 (0.9-1.1) H Activated Partial Thromboplast Time 50 SEC (23-33) H Current Medications Medications (Trade) Dose Ordered Sig/Maggie Route PRN Reason Start Time Stop Time Status Last Admin Dose Admin Acetaminophen (Tylenol) 650 mg Q4H PRN ORAL T>100.5 11/30/17 14:00 12/29/17 17:59 Acetaminophen/ Hydrocodone Bitart ([place] 10/325) 1 tab Q4H PRN ORAL Moderate Pain (Pain Scale 4-6) 11/30/17 18:30 12/07/17 18:29 Albuterol/ Ipratropium (Albuterol/ Ipratropium) 3 ml Q4H PRN HHN Shortness of Breath 11/30/17 14:00 12/04/17 17:59 Atenolol (Tenormin) 25 mg DAILY ORAL 12/01/17 09:00 12/30/17 08:59 Cefepime HCl 2 gm/ Sodium Chloride 110 ml @ 220 mls/hr Q12H IV 11/30/17 17:00 12/07/17 04:59 12/01/17 04:36 Chlorhexidine Gluconate (Yeu-Hex 2%) 1 applic DAILY@2000 TOPIC 11/30/17 20:00 12/30/17 19:59 11/30/17 21:38 Dextrose (Dextrose 50%) STAT PRN IV Hypoglycemia 11/30/17 14:30 12/29/17 14:29 Fentanyl (Duragesic) 1 patch Q72H TDERMAL 11/30/17 10:00 12/07/17 09:59 11/30/17 11:04 Folic Acid (Folate) 1 mg DAILY ORAL 12/01/17 10:00 12/31/17 09:59 Lorazepam (Ativan 2mg/ml 1ml) 1 mg Q4H PRN IV For Anxiety 12/01/17 08:15 12/08/17 08:14 Miscellaneous Medication (fentaNYL Destruction) 1 ea Q72H MISC 12/03/17 10:00 01/02/18 09:59 Morphine Sulfate (Morphine Sulfate) 4 mg Q3H PRN IVP Severe Pain (Pain Scale 7-10) 11/30/17 18:30 12/07/17 18:29 11/30/17 19:59 Naloxone HCl (Narcan) 0.1 mg PRN IV Sedation scale 3 or 4 11/30/17 14:00 12/30/17 13:59 Ondansetron HCl (Zofran ODT) 8 mg Q6H PRN ORAL Nausea & Vomiting 11/30/17 14:30 12/29/17 14:29 Polyethylene Glycol (Miralax) 17 gm DAILYPRN PRN ORAL Constipation 11/30/17 14:30 12/29/17 14:29 Promethazine HCl (Phenergan) 25 mg Q6H PRN IV Nausea & Vomiting 11/30/17 14:30 12/30/17 14:29 Sodium Chloride 1,000 ml @ 50 mls/hr Q20H IV 11/30/17 14:00 12/29/17 21:29 11/30/17 15:27 Sodium Phosphate (Fleet's Sodium Phosl Enema) 133 ml DAILYPRN PRN RECTAL Constipation 11/30/17 14:30 12/30/17 14:29 Vancomycin HCl (Vanco rx to dose) 1 ea DAILY PRN MISC . 12/01/17 07:45 12/31/17 07:44 IAIN READ M.D. Dec 01, 2017 10:21
[2017-12-01 12:00] VITALS: BP 103/97
--- NOTE | 2017-12-01 12:37 | GI Progress Note ---
Assessment/Plan Problems: (1) GI bleed ICD Codes: K92.2 - Gastrointestinal hemorrhage, unspecified SNOMED: 56185579 (2) Lung cancer ICD Codes: C34.90 - Malignant neoplasm of unspecified part of unspecified bronchus or lung SNOMED: 782770637 Status: progressing Status Narrative Discussed with Dr. Benitez. Assessment/Plan elevated AST >> ?ETOH >> denies any use iron elevation folate deficiency fu onc recs anemia work up OB stool r/o GI bleed monitor H&H, prn transfusions bowel regime regular diet ppi fu labs, coags Subjective Gastrointestinal/Abdominal: Reports: no symptoms Subjective feels better Objective Last 24 Hour Vital Signs Date Time Temp Pulse Resp B/P (MAP) Pulse Ox O2 Delivery O2 Flow Rate FiO2 12/01/17 11:31 89 20 99 Venturi Mask 15.0 55 12/01/17 11:24 90 24 90 Venturi Mask 15.0 55 12/01/17 11:24 55 12/01/17 09:00 75 104/65 12/01/17 08:00 98.1 95 16 104/65 96 98.1 12/01/17 05:36 Venturi Mask 12.0 50 12/01/17 05:36 92 Venturi Mask 12.0 50 12/01/17 04:00 98.1 89 22 90/59 97 98.1 12/01/17 00:00 97.9 99 22 92/57 98 97.9 11/30/17 20:00 98.2 104 21 110/75 98 98.2 11/30/17 16:00 98.2 82 20 92/63 98 Room Air 98.2 11/30/17 13:30 97.5 112 22 105/65 90 Room Air 97.5 Intake and Output 11/30/17 12/01/17 19:00 07:00 Intake Total 50 ml 610 ml Balance 50 ml 610 ml IV Total 50 ml 610 ml # Voids 2 1 # Bowel Movements 1 Laboratory Tests Test 12/01/17 04:50 12/01/17 05:00 Sodium Level 131 MMOL/L (136-145) L Potassium Level 3.9 MMOL/L (3.5-5.1) Chloride Level 100 MMOL/L (98-107) Carbon Dioxide Level 20 MMOL/L (21-32) L Anion Gap 11 mmol/L (5-15) Blood Urea Nitrogen 52 mg/dL (7-18) H Creatinine 1.8 MG/DL (0.55-1.30) H Estimat Glomerular Filtration Rate 39.2 mL/min (>60) Glucose Level 94 MG/DL (74-106) Calcium Level 6.6 MG/DL (8.5-10.1) #L Iron Level 118 ug/dL (50-175) Total Iron Binding Capacity 193 ug/dL (250-450) L Percent Iron Saturation 61 % (15-50) H Unsaturated Iron Binding 75 ug/dL (112-346) L Ferritin > 2000 NG/ML (8-388) H Total Bilirubin 0.3 MG/DL (0.2-1.0) Aspartate Amino Transf (AST/SGOT) 423 U/L (15-37) H Alanine Aminotransferase (ALT/SGPT) 30 U/L (12-78) Alkaline Phosphatase 236 U/L (46-116) H Total Protein 5.3 G/DL (6.4-8.2) #L Albumin 1.8 G/DL (3.4-5.0) L Globulin 3.5 g/dL Albumin/Globulin Ratio 0.5 (1.0-2.7) L Vitamin B12 Level 1214 PG/ML (193-986) H Folate 4.8 NG/ML (8.6-58.9) L Thyroid Stimulating Hormone (TSH) 0.852 uiU/mL (0.358-3.740) Free Thyroxine 1.28 NG/DL (0.76-1.46) Vancomycin Level Trough 27.3 ug/mL (5.0-12.0) H White Blood Count 11.9 K/UL (4.8-10.8) H Red Blood Count 2.95 M/UL (4.70-6.10) L Hemoglobin 9.1 G/DL (14.2-18.0) L Hematocrit 27.2 % (42.0-52.0) L Mean Corpuscular Volume 92 FL (80-99) Mean Corpuscular Hemoglobin 30.9 PG (27.0-31.0) Mean Corpuscular Hemoglobin Concent 33.4 G/DL (32.0-36.0) Red Cell Distribution Width 16.1 % (11.6-14.8) H Platelet Count 284 K/UL (150-450) Mean Platelet Volume 5.4 FL (6.5-10.1) L Neutrophils (%) (Auto) 79.7 % (45.0-75.0) H Lymphocytes (%) (Auto) 11.7 % (20.0-45.0) L Monocytes (%) (Auto) 6.8 % (1.0-10.0) Eosinophils (%) (Auto) 0.6 % (0.0-3.0) Basophils (%) (Auto) 1.1 % (0.0-2.0) Reticulocyte Count 4.0 % (0.0-2.0) H Prothrombin Time 44.3 SEC (9.30-11.50) H Prothromb Time International Ratio 4.2 (0.9-1.1) H Activated Partial Thromboplast Time 50 SEC (23-33) H Height (Feet): 5 Height (Inches): 10.00 Weight (Pounds): 164 General Appearance: WD/WN, no apparent distress, alert Cardiovascular: normal rate Respiratory/Chest: normal breath sounds, no respiratory distress Abdominal Exam: normal bowel sounds, non tender, soft Extremities: normal range of motion, non-tender Shanita Hutchison N.P. Dec 01, 2017 12:37
[2017-12-01] MEDS: Morphine Sulfate 4mg/ml Inj IVP PRN ×2 (12:55→17:39)
--- NOTE | 2017-12-01 15:02 | Pulmonology Progress Note ---
Assessment/Plan Problems: (1) Respiratory distress (2) Intractable back pain (3) Pathological fracture (4) Lung cancer (5) Pneumonia Assessment/Plan respiratory treatment iv abx check cultures chest PT pain management poor prognosis familly accepting Subjective ROS Limited/Unobtainable: No Constitutional: Reports: no symptoms HEENT: Repors: no symptoms Allergies: Coded Allergies: CODEINE (Verified Allergy, Unknown, 11/29/17) PENICILLINS (Verified Allergy, Unknown, 11/29/17) LIDOCAINE (Verified Adverse Reaction, Unknown, 11/29/17) Objective Last 24 Hour Vital Signs Date Time Temp Pulse Resp B/P (MAP) Pulse Ox O2 Delivery O2 Flow Rate FiO2 12/01/17 12:55 98.1 12/01/17 12:00 98.1 88 13 103/97 95 Nasal Cannula 98.1 12/01/17 11:31 89 20 99 Venturi Mask 15.0 55 12/01/17 11:24 90 24 90 Venturi Mask 15.0 55 12/01/17 11:24 55 12/01/17 09:00 75 104/65 12/01/17 08:00 98.1 95 16 104/65 96 98.1 12/01/17 05:36 Venturi Mask 12.0 50 12/01/17 05:36 92 Venturi Mask 12.0 50 12/01/17 04:00 98.1 89 22 90/59 97 98.1 12/01/17 00:00 97.9 99 22 92/57 98 97.9 11/30/17 20:00 98.2 104 21 110/75 98 98.2 11/30/17 16:00 98.2 82 20 92/63 98 Room Air 98.2 Intake and Output 11/30/17 12/01/17 19:00 07:00 Intake Total 50 ml 610 ml Balance 50 ml 610 ml IV Total 50 ml 610 ml # Voids 2 1 # Bowel Movements 1 Objective General Appearance: WD/WN HEENT: normocephalic, atraumatic Respiratory/Chest: chest wall non-tender, +rhonchi, decreased BS at left Breasts: no masses Cardiovascular: normal peripheral pulses Abdomen: normal bowel sounds, soft, non tender Extremities: no cyanosis Skin: no rash 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 normal Musculoskeletal: normal muscle bulk Microbiology Date/Time Source Procedure Growth Status 11/29/17 16:52 Blood Blood Culture - Preliminary NO GROWTH AFTER 24 HOURS Resulted 11/29/17 16:48 Blood Blood Culture - Preliminary NO GROWTH AFTER 24 HOURS Resulted 11/29/17 20:09 Nasal Nares Influenza Types A,B Antigen (RENETTA) - Final Complete Laboratory Tests 12/01/17 04:50: Sodium Level 131L, Potassium Level 3.9, Chloride Level 100, Carbon Dioxide Level 20L, Anion Gap 11, Blood Urea Nitrogen 52H, Creatinine 1.8H, Estimat Glomerular Filtration Rate 39.2, Glucose Level 94, Calcium Level 6.6#L, Iron Level 118, Total Iron Binding Capacity 193L, Percent Iron Saturation 61H, Unsaturated Iron Binding 75L, Ferritin > 2000H, Total Bilirubin 0.3, Aspartate Amino Transf (AST/SGOT) 423H, Alanine Aminotransferase (ALT/SGPT) 30, Alkaline Phosphatase 236H, Total Protein 5.3#L, Albumin 1.8L, Globulin 3.5, Albumin/ Globulin Ratio 0.5L, Vitamin B12 Level 1214H, Folate 4.8L, Thyroid Stimulating Hormone (TSH) 0.852, Free Thyroxine 1.28, Vancomycin Level Trough 27.3H 12/01/17 05:00: White Blood Count 11.9H, Red Blood Count 2.95L, Hemoglobin 9.1L, Hematocrit 27.2L, Mean Corpuscular Volume 92, Mean Corpuscular Hemoglobin 30.9, Mean Corpuscular Hemoglobin Concent 33.4, Red Cell Distribution Width 16.1H, Platelet Count 284, Mean Platelet Volume 5.4L, Neutrophils (%) (Auto) 79.7H, Lymphocytes (%) (Auto) 11.7L, Monocytes (%) (Auto) 6.8, Eosinophils (%) (Auto) 0.6, Basophils (%) (Auto) 1.1, Reticulocyte Count 4.0H, Prothrombin Time 44.3H, Prothromb Time International Ratio 4.2H, Activated Partial Thromboplast Time 50H Current Medications Medications (Trade) Dose Ordered Sig/Maggie Route PRN Reason Start Time Stop Time Status Last Admin Dose Admin Acetaminophen (Tylenol) 650 mg Q4H PRN ORAL T>100.5 11/30/17 14:00 12/29/17 17:59 Acetaminophen/ Hydrocodone Bitart ([place] 10/325) 1 tab Q4H PRN ORAL Moderate Pain (Pain Scale 4-6) 11/30/17 18:30 12/07/17 18:29 Albuterol/ Ipratropium (Albuterol/ Ipratropium) 3 ml Q4H PRN HHN Shortness of Breath 11/30/17 14:00 12/04/17 17:59 12/01/17 11:24 Atenolol (Tenormin) 25 mg DAILY ORAL 12/01/17 09:00 12/30/17 08:59 Cefepime HCl 2 gm/ Sodium Chloride 110 ml @ 220 mls/hr Q12H IV 11/30/17 17:00 12/07/17 04:59 12/01/17 04:36 Chlorhexidine Gluconate (Yue-Hex 2%) 1 applic DAILY@2000 TOPIC 11/30/17 20:00 12/30/17 19:59 11/30/17 21:38 Dextrose (Dextrose 50%) STAT PRN IV Hypoglycemia 11/30/17 14:30 12/29/17 14:29 Fentanyl (Duragesic) 1 patch Q72H TDERMAL 11/30/17 10:00 12/07/17 09:59 11/30/17 11:04 Folic Acid (Folate) 1 mg DAILY ORAL 12/01/17 10:00 12/31/17 09:59 12/01/17 10:36 Lorazepam (Ativan 2mg/ml 1ml) 1 mg Q4H PRN IV For Anxiety 12/01/17 08:15 12/08/17 08:14 Miscellaneous Medication (fentaNYL Destruction) 1 ea Q72H MISC 12/03/17 10:00 01/02/18 09:59 Morphine Sulfate (Morphine Sulfate) 4 mg Q3H PRN IVP Severe Pain (Pain Scale 7-10) 11/30/17 18:30 12/07/17 18:29 12/01/17 12:55 Naloxone HCl (Narcan) 0.1 mg PRN IV Sedation scale 3 or 4 11/30/17 14:00 12/30/17 13:59 Ondansetron HCl (Zofran ODT) 8 mg Q6H PRN ORAL Nausea & Vomiting 11/30/17 14:30 12/29/17 14:29 Polyethylene Glycol (Miralax) 17 gm DAILYPRN PRN ORAL Constipation 11/30/17 14:30 12/29/17 14:29 Promethazine HCl (Phenergan) 25 mg Q6H PRN IV Nausea & Vomiting 11/30/17 14:30 12/30/17 14:29 Sodium Chloride 1,000 ml @ 50 mls/hr Q20H IV 11/30/17 14:00 12/29/17 21:29 11/30/17 15:27 Sodium Phosphate (Fleet's Sodium Phosl Enema) 133 ml DAILYPRN PRN RECTAL Constipation 11/30/17 14:30 12/30/17 14:29 Vancomycin HCl (Vanco rx to dose) 1 ea DAILY PRN MISC . 12/01/17 07:45 12/31/17 07:44 SUNSHINE STEWARD Dec 01, 2017 15:02
--- NOTE | 2017-12-01 15:09 | Diagnostic Imaging Report ---
Indication: Back pain Comparison: None Findings: 2 views of the thoracic spine were obtained. Normal alignment is demonstrated. The bones are osteopenic diffusely. There is loss of height of several thoracic vertebral bodies consistent with compression fracture deformities. Acuity is not certain on the basis of this examination although there are no compelling findings for acute injury demonstrated. Superimposed degenerative changes of the spine noted with spur formation. Please correlate clinically there is a central venous catheter noted. IMPRESSION: Multiple mild compression fracture deformities involving several thoracic vertebra, age-indeterminate. Please correlate clinically and evaluate further as..
[2017-12-01 16:00] VITALS: BP 134/78
[2017-12-01 20:00] VITALS: BP 78/48
[2017-12-01] MEDS ORDERED: Tubing IV Secondary IV ONE (20:39)
[2017-12-01] MEDS ORDERED: 1/2 NS 1000ml IV ONE (20:39)
[2017-12-02] MEDS ORDERED: Cefepime HCl 2 GM in NS 110 ML IV SCH (04:00)
--- NOTE | 2017-12-02 14:41 | Discharge Summary ---
Discharge Summary Hospital Course Date of Admission Nov 29, 2017 at 17:33 Date of Discharge Dec 01, 2017 at 20:40 Admitting Diagnosis resp distress/lung CA HPI Javid Gomez is a 57 year old male who was admitted on Nov 29, 2017 at 17 :33 for Respiratory Distress/Lung [facility] Hospital Course [id number] Discharge Discharge Disposition Patient Discharge Diagnoses: Meghan Villasenor NP Dec 02, 2017 14:41
--- NOTE | 2017-12-03 03:45 | Discharge Summary 2 SIG ---
DATE OF ADMISSION: 11/29/2017 DATE OF DISCHARGE: 12/01/2017 BRIEF SUMMARY: The patient is an unfortunate 57-year-old male with history of stage IV lung CA, hypertension, and weakness/unsteadiness, who was unable to walk for the past two months, presented to ED complaining of shortness of breath for the past three to four days. He was also feeling hot. EMS was called. The patient just finished smoking a cigarette. His O2 saturation was noted to be on the 94. He is not on oxygen at home. On evaluation at ED, he was noted to be in respiratory distress although was not hypoxic on room air. He had a chest x-ray done that showed evidence of left lung volume loss and likely pleural fluid. WBC was 14. He was given cefepime. He was placed on BiPAP, however, the patient was refusing to keep BiPAP on. He was started on vancomycin and cefepime. He had body pain and was given fentanyl patch every 72 hours, methadone every 6 hours, Beeson, as well as morphine. Influenza screening was negative for influenza A and B. He continued to be in respiratory distress. He was given chest physiotherapy and was continued on respiratory treatments. He had a chest CT done that showed a heterogenous mass in the left upper chest consistent with malignant neoplasm. There was a compression of the left main stem bronchus with complete atelectasis of the left upper lobe and near complete atelectasis of the left lower lobe. He had multiple mild compression fracture deformities in the thoracic vertebra. He had poor prognosis. He eventually . FINAL DIAGNOSES: 1. Acute respiratory failure requiring BiPAP. 2. Lung cancer stage IV small cell carcinoma. 3. Chronic obstructive pulmonary disease. 4. Hypertension. 5. Paraparesis. Arsen Martin M.D. I have been assigned to dictate discharge summary on this account and I was not involved in the patient's management. Meghan Villasenor N.P. DR: JAYME JOB#: [id number] CC: JOSSUE
[2017-12-03] MEDS ORDERED: fentaNYL Destruction MISC SCH ×2 (10:00)
--- NOTE | 2017-12-03 10:28 | Diagnostic Imaging Report ---
APPROVED REPORT CPT Code: 29738 Present Symptoms Comments: R/O DVT BILATERAL: Imaging reveals a patent deep venous system bilaterally. There is no evidence of thrombus within the femoral, popliteal or tibial segments. The greater saphenous veins are also within normal limits. Doppler indicates normal spontaneous flow within these segments.
== END 2017-12-01 20:40 | disposition expired | DRG 136 ==
LOC: EDBD 16:26 → EDUNIT# 16:26 → EMR 17:29 → 2E 17:33 → EDBEDREQ 18:32 → 4E 11-30 13:27
DX: C34.12 Malignant neoplasm of upper lobe, left bronchus or lung (principal); J18.8 Other pneumonia, unspecified organism; C78.7 Secondary malignant neoplasm of liver and intrahepatic bile duct; C79.51 Secondary malignant neoplasm of bone; Z66 Do not resuscitate; C79.72 Secondary malignant neoplasm of left adrenal gland; K92.2 Gastrointestinal hemorrhage, unspecified; F17.210 Nicotine dependence, cigarettes, uncomplicated; I10 Essential (primary) hypertension; J44.9 Chronic obstructive pulmonary disease, unspecified; G82.20 Paraplegia, unspecified; J98.11 Atelectasis; M84.48XA Pathological fracture, other site, initial encounter for fracture; Z88.0 Allergy status to penicillin; Z53.29 Procedure and treatment not carried out because of patient's decision for other reasons
CPT/HCPCS: 36415; 71045; 71260; 72070; 80053; 80069; 80202; 82378; 82607; 82728; 82746; 83540; 83550; 83605; 84439; 84443; 84484; 85007; 85025; 85044; 85610; 85730; 86710; 87040; 93005; 93970; 94640; 94664; 94760; 99291; J7620